=== PATIENT | female | born 1945 ===

== ENCOUNTER 2016-12-19 11:57 | Day surgery (SDC) | payer MEDICARE ==
[2016-12-19] MEDS ORDERED: Lidocaine 4% (Laryng-O-Jet) Kit MM ONE (13:05)
[2016-12-19] MEDS ORDERED: Propofol 10 mg/ml Inj (20 ML) ONE (13:09)
[2016-12-19 13:47] VITALS: TEMP 97
[2016-12-19 14:14] VITALS: O2SAT 98
[2016-12-19 14:15] VITALS: BP 118/61; PULSE 65; RESP 16
== END 2016-12-19 14:36 | disposition home or self-care (01) ==
LOC: C.ENDO 11:57
PROVIDERS: ATTEND Internal Medicine Gastroenterology
DX: K21.0 Gastro-esophageal reflux disease with esophagitis (principal); K44.9 Diaphragmatic hernia without obstruction or gangrene; K29.70 Gastritis, unspecified, without bleeding; Z94.0 Kidney transplant status
CPT/HCPCS: 43239; 88305; 88312; 88313; 88342; J2704